=== PATIENT | female | born 1955 | race Asian ===

== ENCOUNTER 2017-05-02 14:41 | Emergency (ER) | payer OTHER ==
--- NOTE | 2017-05-02 16:54 | ED Physician Documentation ---
PD HPI URI - Stated complaint Stated Complaint: COUGH/ABD PX - Chief complaint Chief Complaint: Resp - History obtained from History obtained from: Patient - History of Present Illness Timing - onset: How many days ago (2) Timing duration: Days (2) Timing details: Gradual onset, Still present, Intermittant Associated symptoms: Fever, Chills, Dry cough (she has had feeling of chills and fevers, malaise, and moderate deep cough. Then having left abd pain. Some nausea and less appetite but not vomiting nor diarrhea. Says she has been constipated for a couple of days, with feeling of firm stool. No dysuria. Still able to eat and drink without worsening of the pain.) Contributing factors: No: Sick contact, Travel, Immunocompromised, COPD / asthma Worsened by: Activity (coughing and twisting movement of trunk), Other (not by eating). No: Breathing Similar symptoms before: Has not had sx before Recently seen: Not recently seen Review of Systems Constitutional: reports: Fever, Chills, Myalgias Nose: reports: Congestion Cardiac: denies: Chest pain / pressure Respiratory: reports: Cough. denies: Dyspnea, Wheezing GI: reports: Abdominal Pain, Nausea, Constipation. denies: Vomiting, Diarrhea Skin: denies: Rash, Lesions PD PAST MEDICAL HISTORY - Past Medical History Cardiovascular: Hypertension Neuro: Fainting Endocrine/Autoimmune: Type 2 diabetes GI: GERD - Past Surgical History Ortho: Shoulder arthroplasty /[employer] CLAIMS ADJUSTER: Hysterectomy, Mastectomy - Present Medications Home Medications: Ambulatory Orders Medication Instructions Recorded Confirmed Atenolol 1 tab DAILY 07/25/15 Lipitor 1 tab DAILY 07/25/15 Meclizine 1 tab PRN 07/25/15 Metformin 1 tab DAILY 07/25/15 Micardis 1 tab DAILY 07/25/15 Omeprazole 1 tab DAILY 07/25/15 Benzonatate [Tessalon] 100 mg PO TID PRN #25 capsule 05/02/17 Dexamethasone [Decadron] 4 mg PO DAILY #5 tablet 05/02/17 Docusate Sodium 100 mg PO DAILY #30 capsule 05/02/17 Tramadol HCl 50 mg PO Q6H PRN #20 tablet 05/02/17 - Allergies Allergies/Adverse Reactions: Allergies Allergy/AdvReac Type Severity Reaction Status Date / Time No Known Drug Allergies Allergy Verified 05/02/17 14:48 - Social History Does the pt smoke?: No Smoking Status: Never smoker Does the pt drink ETOH?: Yes Does the pt have substance abuse?: No - Immunizations Immunizations are current?: Yes PD ED PE NORMAL - Vitals Vital signs reviewed: Yes - General General: Alert and oriented X 3, No acute distress, Well developed/nourished - HEENT HEENT: Ears normal, Pharynx benign - Neck Neck: Supple, no meningeal sign, No adenopathy - Cardiac Cardiac: RRR, No murmur - Respiratory Respiratory: Clear bilaterally - Abdomen Abdomen: Normal bowel sounds, Soft, Non distended, No organomegaly, Other ( mildly tender left abd with abd wall palpation. No percussion nor rebound tenderness. No rash nor fullness. ) - Female Female : Deferred - Rectal Rectal: Deferred - Back Back: No CVA TTP - Derm Derm: Normal color, Warm and dry - Extremities Extremities: Normal ROM s pain - Neuro Neuro: Alert and oriented X 3, No motor deficit, Normal speech Results - Vitals Vitals: Vital Signs - 24 hr 05/02/17 05/02/17 14:46 17:59 Temperature 36.8 C Heart Rate 75 76 Respiratory 16 18 Rate Blood Pressure 115/59 L 133/74 H O2 Saturation 97 98 Oxygen O2 Source Room air - Labs Labs: Laboratory Tests 05/02/17 17:05 Urine Color YELLOW Urine Clarity CLEAR Urine pH 5.5 Ur Specific [place] 1.015 Urine Protein NEGATIVE Urine Glucose (UA) NEGATIVE Urine Ketones NEGATIVE Urine Occult Blood NEGATIVE Urine Nitrite NEGATIVE Urine Bilirubin NEGATIVE Urine Urobilinogen 0.2 (NORMAL) Ur Leukocyte Esterase NEGATIVE Ur Microscopic Review NOT INDICATED Urine Culture Comments NOT INDICATED PD MEDICAL DECISION MAKING - ED course Complexity details: considered differential (her abd exam seems benign, with some local tenderness, seems likely more abd wall. I think strain related to coughing. No peritoneal findings. ), d/w patient Departure - Departure Disposition: 01 Home, Self Care Clinical Impression: Left sided abdominal pain Upper respiratory infection Qualifiers: URI type: unspecified URI Qualified Code(s): J06.9 - Acute upper respiratory infection, unspecified Condition: Stable Record reviewed to determine appropriate education?: Yes Instructions: ED Upper Resp Infec No Abx Tx, ED Strain Abdominal Muscle Follow-Up: Braxton Lara DO [Primary Care Provider] - Prescriptions: Benzonatate [Tessalon] 100 mg PO TID PRN #25 capsule PRN Reason: Cough Dexamethasone [Decadron] 4 mg PO DAILY #5 tablet Docusate Sodium 100 mg PO DAILY #30 capsule Tramadol HCl 50 mg PO Q6H PRN #20 tablet PRN Reason: Pain Comments: Your urine test is okay. Sounds like you have a chest cold and will give you some dexamethasone for the inflammation and Tessalon for the cough. I think the stomach pain is related to the viral illness though could be muscular from the coughing combined with some element of constipation. Use docusate daily for the next week or 2 to soften stool. Use Tylenol or tramadol if needed for pains. Recheck if not improved over the next few days. Off work for couple of days as needed for acute illness. Drink lots of fluids. Forms: Activity restrictions Discharge Date/Time: 05/02/17 17:59
[2017-05-02] MEDS ORDERED: BENZONATATE 100 MG CAPSULE PO STA (17:07)
[2017-05-02] MEDS ORDERED: DOCUSATE SODIUM 100 MG CAPSULE PO STA (17:07)
[2017-05-02] MEDS ORDERED: DEXAMETHASONE 10 MG/ML VIAL PO STA (17:07)
[2017-05-02] MEDS ORDERED: ACETAMINOPHEN 325 MG TABLET PO STA (17:07)
[2017-05-02] MEDS ORDERED: traMADol 50 MG TABLET PO STA (17:08)
[2017-05-02 17:18] LABS: BILIRUBIN,URINE NEGATIVE (NEGATIVE); GLUCOSE, URINE (UA) NEGATIVE (NEGATIVE); KETONES,URINE (UA) NEGATIVE (NEGATIVE); LEUKOCYTE ESTERASE, URINE NEGATIVE (NEGATIVE); NITRITE,URINE NEGATIVE (NEGATIVE); OCCULT BLOOD,URINE NEGATIVE (NEGATIVE); PH,URINE 5.5 PH (5.0-7.5); PROTEIN,URINE NEGATIVE (NEGATIVE); UROBILINOGEN,URINE 0.2 (NORMAL) E.U./dL (NORMAL)
[2017-05-02 17:25] LABS: CLARITY,URINE CLEAR (CLEAR)
[2017-05-02 18:02] VITALS: BP 133/74
== END 2017-05-02 17:59 | disposition home or self-care (01) ==
LOC: ED 14:41
DX: R10.32 Left lower quadrant pain (principal); J06.9 Acute upper respiratory infection, unspecified; E11.9 Type 2 diabetes mellitus without complications; I10 Essential (primary) hypertension; Z79.84 Long term (current) use of oral hypoglycemic drugs
CPT/HCPCS: 81003; 99283; A9270; 81001; 87086